=== PATIENT | female | born 1990 | race Hispanic/Latino ===

== ENCOUNTER → 2018-07-31 14:40 | Outpatient (CLI) | payer OTHER, SELFPAY ==
--- NOTE | 2018-07-31 | DI.MRI.S_ITS ---
PROCEDURE: MR KNEE RT WO CON INDICATIONS: RIGHT KNEE PAIN TECHNIQUE: Noncontrast sagittal PD fast spin echo and T2 fast spin echo with fat saturation, sagittal 3-D FLASH with fat saturation; coronal T1 spin echo and PD fast spin echo with fat saturation, and axial PD fast spin echo with fat saturation through the knee. COMPARISON: None. FINDINGS: Image quality: Excellent. Menisci: There is horizontal tear involving of the lateral meniscus involving anterior horn, body and posterior horn extending into the anterior root ligament. The lateral meniscus demonstrates normal morphology and internal signal. Cruciate ligaments: The anterior and posterior cruciate ligaments appear intact. Medial structures: The medial collateral ligament appears intact. The posterior oblique ligament, semimembranosus tendon insertions, oblique popliteal ligament, and meniscocapsular junction appear intact. Visualized portions of the pes anserinus tendons appear normal. No abnormal bursal fluid. Lateral structures: The lateral collateral ligament, long and short heads of the biceps femoris tendon appear intact. The popliteus tendon appears normal; the popliteofibular ligament appears intact. The posterosuperior and anteroinferior popliteomeniscal fascicles appear intact. The arcuate and fabellofibular ligaments appear intact, on either side of the lateral inferior geniculate artery. Iliotibial band appears normal. Anterior structures: The quadriceps and patellar tendons appear intact. Patellar alignment is normal. No femoral trochlear dysplasia or ventral trochlear prominence. No edema in the infrapatellar fat pad. Bones and cartilage: No bone marrow contusions or fractures. The cartilage of the medial and lateral femorotibial compartments, as well as the patellofemoral compartment, appears normal in thickness. Joint space: There is physiologic knee joint fluid. No Barfield's cyst. Normal appearing synovial plicae are incidentally noted. Probable 5 mm intra-articular body in the superior knee joint. IMPRESSION: 1. Horizontal meniscal tear of the lateral meniscus. 2. Small knee joint effusion. 3. Probable 5 mm intra-articular body in the superior knee joint. Dictated by: Leonardo Neal M.D. on 08/02/2018 at 8:31 Approved by: Leonardo Neal M.D. on 08/02/2018 at 13:16
== END ==
PROVIDERS: Visit Provider Nurse Practitioner Family
DX: M25.561 Pain in right knee (principal); S83.281A Other tear of lateral meniscus, current injury, right knee, initial encounter; M25.461 Effusion, right knee
CPT/HCPCS: 73721

== ENCOUNTER 2020-01-16 12:15 | Emergency (ER) | payer OTHER, SELFPAY ==
[2020-01-16 12:28] VITALS: BP 115/71; PULSE 70; RESP 18; TEMP 36.9; O2SAT 100
--- NOTE | 2020-01-16 12:32 | DI.US.S_ITS ---
PROCEDURE: US OB <= 14 WEEKS FETUS INDICATIONS: 10 weeks, confirmed IUP, bright red bleeding. may go to US OUTSIDE/PRIOR DATING DATA: Last menstrual period (LMP): 11/05/19. LMP-based estimated date of delivery (CRISS): 08/11/20 . First dating scan (date and location): This study . Estimated date of delivery (CRISS) from first dating scan: 08/10/20 . TECHNIQUE: Real-time scanning was performed of the fetus and maternal pelvic organs, with image documentation. Endovaginal scanning was also performed to better visualize the fetus and maternal ovaries. COMPARISON: None. FINDINGS: Embryo: [place]-rump length 3.6 cm correlates with a gestational age of 10 weeks 3 days. Heart rate normal at 155 beats per minute. Measurement variability in dating: +/- 4 weeks by LMP, +/- 7 days by mean sac diameter (use before 6 weeks gestation if crown-rump length not able to be measured), +/- 5 days by crown-rump length (up to 8 weeks 6 days gestation), +/- 7 days by crown-rump length (up to 13 weeks 6 days gestation). Maternal organs: Ovaries normal considering gestational status. Maternal cervical length is 4.3 cm Limited images through the kidneys demonstrate no hydronephrosis. . IMPRESSION: Single living intrauterine gestation, with estimated delivery date projected to be 08/10/20. Dictated by: Clinton Araujo M.D. on 01/16/2020 at 14:34 Approved by: Clinton Araujo M.D. on 01/16/2020 at 14:37
[2020-01-16 13:08] LABS: Add Manual Diff / Slide Review NO; Basophils Absolute Auto 0 /uL (0-100); Basophils Percent Auto 0.6 % (0-2); Eosinophils Absolute Auto 100 /uL (0-450); Eosinophils Percent Auto 1.7 % (2-4); Hematocrit 37.1 % (36-46); Hemoglobin 12.6 g/dL (12.0-16.0); Lymphocytes Absolute Auto 1700 /uL (1100-4500); Mean Corpuscular HGB Conc 33.9 % (30-36); Mean Corpuscular Hemoglobin 30.7 PG (26-34); Mean Corpuscular Volume 90.7 fL (80-100); Monocytes Absolute Auto 400 /uL (0-900); Neutrophils Absolute Auto 5600 /uL (1500-7000); Neutrophils Percent Auto 70.7 % (50-75); Platelet Count 195 X10^3/uL (150-400); Red Blood Cell Count 4.09 X10^6/uL (4.0-5.2); Red Cell Distribution Width 13.4 % (11.6-14.8); White Blood Cell Count 7.9 X10^3/uL (4.5-11.0)
[2020-01-16 13:19] LABS: Alanine Aminotransferase 9 IU/L (<35); Albumin Globulin Ratio 1.3 (1.0-2.8); Alkaline Phosphatase 59 U/L (38-126); Aspartate Aminotransferase 22 IU/L (14-36); Bilirubin Total 0.3 mg/dL (0.2-1.3); Blood Urea Nitrogen 11 mg/dL (7-17); Carbon Dioxide 27 mmol/L (22-32); Chloride 104 mmol/L (98-107); Estimated Glomerular Filt Rate > 60.0 mL/min (>60); Globulin 3.2 g/dL (1.7-4.1); Glucose 85 mg/dL (70-100); HEMOLYSIS < 15 (0-50); Sodium 137 mmol/L (137-145); Total Protein 7.2 g/dL (6.3-8.2)
--- NOTE | 2020-01-16 13:40 | PC.NURSE ---
States she had an ultrasound that showed IUP on 01/12. Bleeding was x 1 and is now resolved. c/o mild cramping 06/20.
--- NOTE | 2020-01-16 13:57 | ED_ITS ---
HPI - General Chief complaint: Vaginal Bleeding Stated complaint: 10 Wks Preg, States Miscarrige Time Seen by Provider: 01/16/20 13:56 Source: patient Mode of arrival: Ambulatory Limitations: no limitations History of Present Illness HPI Narrative: Patient is a 29-year-old female who is a presenting with vaginal bleeding. She says she is about 10 weeks reaction ultrasound 2 days ago which showed an IUP. This morning she had a gush of bright red blood no cramping. She denies any nausea no flank pain. She is currently being followed on the [employer] however trying to be switched over to the wound center in [place] for desire to have , previous child was breech. MD Complaint: vaginal bleeding Vaginal bleeding: heavy Patient : Yes Related Data Allergies Allergy/AdvReac Type Severity Reaction Status Date / Time No Known Drug Allergies Allergy Verified 01/16/20 12:32 Review of Systems Review of Systems Narrative: GENERAL: Denies chills, fatigue, malaise, fever, sweats, travel HEENT: Denies sinus pain, ear pain, sore throat, difficulty swallowing, neck pain RESPIRATORY: Denies dyspnea, cough, wheezing, hemoptysis, sputum. CARDIOVASCULAR: Denies chest pain, palpitations, orthopnea, edema GASTROINTESTINAL: Denies nausea, vomiting, abdominal pain, diarrhea, constipation, melena. 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 MUSCULOSKELETAL: Denies weakness, joint pain, or bony pain SKIN: No rash, no erythema, no pruritus NEUROLOGIC: Denies weakness, dizziness, headache, numbness, change in speech, confusion PSYCHIATRIC: No concerning psychosocial issues. 12 point review of systems is negative except for those stated above and HPI PMFSH - Past Medical History Medical history: Reports no medical history Surgical history: Reports Patient : Yes Exam Initial Vital Signs Initial Vital Signs: Vital Signs Temperature 98.4 F 01/16/20 12:28 Pulse Rate 70 01/16/20 12:28 Respiratory Rate 18 01/16/20 12:28 Blood Pressure 115/71 01/16/20 12:28 Pulse Oximetry 100 01/16/20 12:28 GENERAL: Well-appearing, well-nourished and in no acute distress. HEENT: Head atraumatic,EOMI, pupils reactive, face symmetric, moist mucous m embranes CARDIOVASCULAR: Regular rate and rhythm without murmurs, rubs or gallops. RESPIRATORY: Breath sounds equal bilaterally, no wheezes rales or rhonchi. ABDOMEN: Soft, nontender. Normoactive bowel sounds all 4 quadrants. No guarding or rebound. : No CVA tenderness EXTREMITIES: Normal range of motion, no clubbing or edema. Neurovascularly intact NEUROLOGICAL: Alert and oriented x4.Normal gait and speech. SKIN: Warm, dry, no laceration, no petechiae, no rashes or lesions. Course Orders Ordered: ED Orders 01/16/20 12:32 US OB <= 14 weeks fetus Stat 01/16/20 12:50 ABO RH Type Stat Complete Blood Count AUTO DIFF Stat Comprehensive Metabolic Panel Stat HCG Quantitative /Beta subunit Stat Vital Signs Vital signs: Vital Signs - 8 hr 01/16/20 12:28 01/16/20 15:02 Temperature 98.4 F Pulse Rate 70 80 Respiratory Rate 18 16 Blood Pressure 115/71 114/69 Pulse Oximetry 100 100 MDM - OB/Uterine Contractions Lab Data Attestation: I reviewed the patient's lab results. Result diagrams: 01/16/20 12:50 01/16/20 12:50 Labs: Lab Results 01/16/20 01/16/20 01/16/20 Range/Units 12:50 12:50 12:50 WBC 7.9 (4.5-11.0) X10^3/uL RBC 4.09 (4.0-5.2) X10^6/uL Hgb 12.6 (12.0-16.0) g/dL Hct 37.1 (36-46) % MCV 90.7 (80-100) fL MCH 30.7 (26-34) PG MCHC 33.9 (30-36) % RDW 13.4 (11.6-14.8) % Plt Count 195 (150-400) X10^3/uL Neut % (Auto) 70.7 (50-75) % Lymph % (Auto) 22.0 L (25-40) % [place] % (Auto) 5.0 (3-14) % Eos % (Auto) 1.7 L (2-4) % Baso % (Auto) 0.6 (0-2) % Neut # (Auto) 5600 (6704-7036) /uL Lymph # (Auto) 1700 (4503-9372) /uL [place] # (Auto) 400 (0-900) /uL Eos # (Auto) 100 (0-450) /uL Baso # (Auto) 0 (0-100) /uL Sodium 137 (137-145) mmol/L Potassium 4.0 (3.4-5.1) mmol/L Chloride 104 (98-107) mmol/L Carbon Dioxide 27 (22-32) mmol/L BUN 11 (7-17) mg/dL Creatinine 0.55 (0.52-1.04) mg/dL Estimated GFR > 60.0 (>60) mL/min BUN/Creatinine Ratio 20.0 (6-22) Glucose 85 (70-100) mg/dL Calcium 9.0 (8.4-10.2) mg/dL Total Bilirubin 0.3 (0.2-1.3) mg/dL AST 22 (14-36) IU/L ALT 9 (<35) IU/L Alkaline Phosphatase 59 (38-126) U/L Total Protein 7.2 (6.3-8.2) g/dL Albumin 4.0 (3.5-5.0) g/dL Globulin 3.2 (1.7-4.1) g/dL Albumin/Globulin Ratio 1.3 (1.0-2.8) HCG, Quant 96176 mIU/mL Blood Type B Positive Urine Dip Bedside Urine Glucose Negative Bedside Urine Bilirubin - Negative Bedside Urine Ketone - Negative Urine Specific [place] 1.015 Bedside Urine Occult Blood +++ Bedside Urine pH 6.0 Bedside Urine Protein - Negative Bedside Urine Urobilinogen - Negative Bedside Urine Nitrite - Negative Bedside Urine Leukocytes - Negative Esterase Imaging Data US - OB: Radiologist's Impression: PROCEDURE: US OB <= 14 WEEKS FETUS INDICATIONS: 10 weeks, confirmed IUP, bright red bleeding. may go to US OUTSIDE/PRIOR DATING DATA: Last menstrual period (LMP): 11/05/19. LMP-based estimated date of delivery (CRISS): 08/11/20 . First dating scan (date and location): This study . Estimated date of delivery (CRISS) from first dating scan: 08/10/20 . TECHNIQUE: Real-time scanning was performed of the fetus and maternal pelvic organs, with image documentation. Endovaginal scanning was also performed to better visualize the fetus and maternal ovaries. COMPARISON: None. FINDINGS: Embryo: [place]-rump length 3.6 cm correlates with a gestational age of 10 weeks 3 days. Heart rate normal at 155 beats per minute. Measurement variability in dating: +/- 4 weeks by LMP, +/- 7 days by mean sac diameter (use before 6 weeks gestation if crown-rump length not able to be measured), +/- 5 days by crown-rump length (up to 8 weeks 6 days gestation), +/- 7 days by crown-rump length (up to 13 weeks 6 days gestation). Maternal organs: Ovaries normal considering gestational status. Maternal cervical length is 4.3 cm Limited images through the kidneys demonstrate no hydronephrosis. . IMPRESSION: Single living intrauterine gestation, with estimated delivery date projected to be 08/10/20. Dictated by: Clinton Araujo M.D. on 01/16/2020 at 14:34 MDM Narrative Medical decision making narrative: THE PATIENT'S ABDOMEN IS SOFT. IT IS FAST WITH HER NEED FOR REPEAT HCG. SHE PLANS ON GETTING THAT THIS WEEK. Discharge Plan Departure Patient Disposition: Home Clinical Impression: Threatened Discharge Date/Time: 01/16/20 15:02 Instructions: Threatened Miscarriage Activity Restrictions/Additional Instructions: HC *You have been diagnosed with threatened miscarriage *What to do: Pelvic rest until further notice and at bleeding completely rhythm subsides. Need to have her hCG rechecked in 2 days [place] [facility] [place] *Continue to take medications as directed *Follow up with your primary care provider in 2-3 days *Return to ER if you should have increased vaginal bleeding, increased pain, or any new, worsening or concerning symptoms Referrals: [facility] [employer] [Provider Group]
[2020-01-16 13:59] LABS: HCG Quantitative /Beta subunit 93089 mIU/mL
[2020-01-16 15:02] VITALS: BP 114/69; PULSE 80; RESP 16; O2SAT 100
== END 2020-01-16 15:02 | disposition home or self-care (01) ==
PROVIDERS: Emergency Provider Emergency Medicine
DX: O20.0 Threatened abortion (principal); Z3A.10 10 weeks gestation of pregnancy
CPT/HCPCS: 36415; 76801; 80053; 81003; 84702; 85025; 86900; 86901; 99283; 99284

== ENCOUNTER → 2020-03-22 09:19 | Outpatient (CLI) | payer OTHER, SELFPAY ==
--- NOTE | 2020-03-22 | DI.US.S_ITS ---
PROCEDURE: US OB >= 14 WEEKS FETUS INDICATIONS: ANATOMY SCAN OUTSIDE/PRIOR DATING DATA: Last menstrual period (LMP): November 05, 2019. LMP-based estimated date of delivery (CRISS): August 11, 2020 First dating scan (date and location): January 13, 2020 Estimated date of delivery (CRISS) from first dating scan: August 11, 2020 TECHNIQUE: Real-time scanning was performed of the fetus, with image documentation and biometric measurements. Endovaginal scanning: Before COMPARISON: [facility], OB <= 14 WEEKS FETUS, 01/16/2020, 13:48. FINDINGS: General: A single living intrauterine gestation is present. Presentation: Vertex Placenta: Placental position is anterior, without previa. Amniotic fluid index: 16.9 cm, normal range is 5-24 cm. heart rate: 150 beats per minute. Maternal cervical canal: Closed and 3.8 cm long. Normal lower limit is 2.5 cm. biometrics: Biparietal diameter: 20 weeks 1 day Head circumference: 20 weeks 0 days Abdominal circumference: 20 weeks 2 days Femur length: 20 weeks 1 day Estimated gestational age from initial scan: 19 weeks 5 days Composite gestational age from present scan: 20 weeks 1 day Estimated weight and percentile: 338 grams; 73rd percentile Measurement variability for biometric dating: +/- 7 days from 14 weeks to 15 weeks 6 days gestation, +/- 10 days from 16 weeks to 21 weeks 6 days gestation, +/- 2 weeks from 22 weeks to 27 weeks 6 days gestation, +/- 3 weeks for 28 weeks gestation or later. weight reference: 4500 g or EFW >90/95% is considered macrosomia or large for gestational age. EFW <10% is small for gestational age. EFW 5% or less is considered intra-uterine growth restriction. Anatomic survey: Neuro: Ventricles are non-dilated at less than 10 mm. Cisterna magna is normal at 3-11 mm. Cerebellum is normal in size and morphology. Nuchal skin fold: Normal at less than 6 mm between 14-21 weeks gestational age. Face: Nose and lips, facial profile are normal. Spine: No evidence for spina bifida. Heart: 4-chambered heart is present, with normal ventricular outflow tracts. Diaphragm: Diaphragm is intact. Stomach: Left-sided stomach is present. Kidneys: No hydronephrosis. Normal is less than 5 mm in 2nd trimester, less than 7 mm in 3rd trimester. Cord: 3-vessel cord has orthotopic insertion. Bladder: Normal in size. Extremities: All 4 extremities identified. IMPRESSION: 1. Single living intrauterine with appropriate interval growth. 2. Normal anatomic survey. Dictated by: Marie Lilly MD, PhD on 03/22/2020 at 16:35 Approved by: Marie Lilly MD, PhD on 03/22/2020 at 16:42
== END ==
PROVIDERS: Referring Provider Midwife; Visit Provider Midwife
DX: Z36.89 Encounter for other specified antenatal screening (principal); Z3A.20 20 weeks gestation of pregnancy
CPT/HCPCS: 76811

== ENCOUNTER → 2020-07-20 12:22 | Outpatient (CLI) | payer OTHER, SELFPAY ==
--- NOTE | 2020-07-20 | DI.US.S_ITS ---
PROCEDURE: US OB LIMITED INDICATIONS: GROWTH SCAN SCAR EVAL OUTSIDE/PRIOR DATING DATA: Last menstrual period (LMP): 11/05/2019. LMP-based estimated date of delivery (CRISS): 08/11/2020 . First dating scan (date and location): 01/13/2020 . Estimated date of delivery (CRISS) from first dating scan: 08/11/2020 . TECHNIQUE: Real-time scanning was performed of the fetus, with image documentation and biometric measurements. Endovaginal scanning: Vertex COMPARISON: [facility], OB >= 14 WEEKS FETUS, 03/22/2020, 9:39. FINDINGS: General: A single living intrauterine gestation is present. Presentation: Fundal. Placenta: Placental position is anterior , without previa. Amniotic fluid index: 12.2 cm, normal range is 5-24 cm. heart rate: 114 beats per minute. Maternal cervical canal: 5.2 cm long. Normal lower limit is 2.5 cm. biometrics: Biparietal diameter: 37 weeks 3 days Head circumference: 41 weeks Abdominal circumference: 36 weeks Femur length: 35 weeks 3 days Estimated gestational age from initial scan: 37 weeks Composite gestational age from present scan: 37 weeks 3 days Estimated weight and percentile: 2959 g; 43rd percentile Measurement variability for biometric dating: +/- 7 days from 14 weeks to 15 weeks 6 days gestation, +/- 10 days from 16 weeks to 21 weeks 6 days gestation, +/- 2 weeks from 22 weeks to 27 weeks 6 days gestation, +/- 3 weeks for 28 weeks gestation or later. weight reference: 4500 g or EFW >90/95% is considered macrosomia or large for gestational age. EFW <10% is small for gestational age. EFW 5% or less is considered intra-uterine growth restriction. Other: Not applicable. IMPRESSION: Single living IUP redemonstrated and interval growth is normal. Dictated by: Sundeep Best [facility] Interpreted: Radha Maya MD on 07/20/2020 at 14:21 Approved by: Radha Maya M.D. on 07/20/2020 at 16:50
== END ==
PROVIDERS: Referring Provider Midwife; Visit Provider Midwife
DX: O34.219 Maternal care for unspecified type scar from previous cesarean delivery (principal); Z3A.37 37 weeks gestation of pregnancy
CPT/HCPCS: 76815

== ENCOUNTER → 2020-09-24 13:15 | Outpatient (CLI) | payer OTHER, SELFPAY ==
--- NOTE | 2020-09-24 13:25 | DI.RAD.S_ITS ---
PROCEDURE: XR HAND RT MIN 3V INDICATIONS: ARTHRITIS BI HAND TECHNIQUE: 3 views of the hand(s) acquired. COMPARISON: None. FINDINGS: Bones: No fractures or dislocations. Carpal bones are normally aligned. No suspicious bony lesions. No osseous erosions. No periarticular osteopenia. Soft tissues: No suspicious soft tissue calcifications. IMPRESSION: No osseous erosions. Dictated by: Marie Lilly MD, PhD on 09/24/2020 at 17:29 Approved by: Marie Lilly MD, PhD on 09/24/2020 at 17:30
--- NOTE | 2020-09-24 13:25 | DI.RAD.S_ITS ---
PROCEDURE: XR HAND LT MIN 3V INDICATIONS: ARTHRITIS BI HAND TECHNIQUE: 3 views of the hand(s) acquired. COMPARISON: None. FINDINGS: Bones: No fractures or dislocations. Carpal bones are normally aligned. No suspicious bony lesions. No osseous erosions. No periarticular osteopenia. Soft tissues: No suspicious soft tissue calcifications. IMPRESSION: No osseous erosions. Dictated by: Marie Lilly MD, PhD on 09/24/2020 at 17:31 Approved by: Marie Lilly MD, PhD on 09/24/2020 at 17:32
== END ==
PROVIDERS: Referring Provider Orthopaedic Surgery; Visit Provider Orthopaedic Surgery
DX: M19.042 Primary osteoarthritis, left hand (principal); M19.041 Primary osteoarthritis, right hand
CPT/HCPCS: 73130

== ENCOUNTER → 2024-09-01 13:37 | Outpatient (CLI) | payer OTHER, SELFPAY ==
--- NOTE | 2024-09-01 13:39 | DI.US.S_ITS ---
PROCEDURE: US PELVIC COMPLETE INDICATIONS: LOWER ABDOMINAL DISCOMFORT/PRESSURE TECHNIQUE: Real-time scanning was performed of the pelvic organs, with image documentation. Additional endovaginal scanning was necessary due to incomplete visualization of the adnexal and endometrial structures by transabdominal scanning. COMPARISON: None. FINDINGS: Uterus: Uterus is anteverted and normal in size at 8.3 x 4.4 x 3.0 cm. The myometrium is heterogeneous. The endometrium measures 3.9 mm combined thickness. No endometrial mass or fluid is seen. Multiple prominent myometrial veins are seen measures up to 3.3 mm in diameter. Ovaries: The right ovary measures 2.9 x 1.6 x 1.6 cm, with a calculated ovarian volume of 3.8 cc. The left ovary measures 2.8 x 2.5 x 1.6 cm, with a calculated ovarian volume of 5.9 cc. The ovaries have a normal sonographic appearance. Less than 12 follicles can be seen in each ovary. No adnexal masses are seen. Other: No pathologic free abdominal or pelvic fluid. IMPRESSION: 1. Mildly enlarged uterus with heterogeneous myometrial echotexture. No discrete uterine fibroids. Nonspecific prominent myometrial veins are seen. 2. No endometrial mass or fluid. 3. Normal appearing bilateral ovaries. We strive to produce accurate, complete, and clear reports of imaging services. To assist us in improving patient care, this report was composed using standard report templates and voice recognition software. Therefore, it may contain abnormal punctuation, insertions and/or omissions. Occasional wrong-word or sound-alike substitutions may occur. Though we review the report and make efforts to correct it, we do recommend that the report be read carefully in proper context to recognize any text inaccuracies. Dictated by: Perfecto Hernandez M.D. on 09/02/2024 at 11:13 Approved by: Perfecto Hernandez M.D. on 09/02/2024 at 11:15
== END ==
PROVIDERS: Referring Provider Obstetrics & Gynecology; Visit Provider Obstetrics & Gynecology
DX: N92.6 Irregular menstruation, unspecified (principal); N85.2 Hypertrophy of uterus
CPT/HCPCS: 76830; 76856